=== PATIENT | female | born 1995 | race American Indian/Alaskan Native ===

== ENCOUNTER 2017-03-21 13:56 | Outpatient (CLI) | payer OTHER ==
[2017-03-21] MEDS ORDERED: PROVENTIL IH ONE (14:08)
[2017-03-21] MEDS ORDERED: PROVENTIL IH SCH (20:00)
== END 2017-03-21 13:57 | disposition home or self-care (01) ==
LOC: PF 13:56
PROVIDERS: ATTEND Internal Medicine
DX: J45.50 Severe persistent asthma, uncomplicated (principal)
CPT/HCPCS: 94060